=== PATIENT | male | born 1985 | race Caucasian/White ===

== ENCOUNTER 2017-03-17 18:02 | Emergency (ER) | payer SELFPAY ==
[~2017-03-17 18:02] MED LIST: COUMADIN10 MG PO; COUMADIN5 MG PO; LASIX DPS40 MG PO; LOPRESSOR DPS100 MG PO
--- NOTE | 2017-03-21 19:13 | ER ---
ADMIT: 03/17/2017 RM/LOC: ER [facility] MR#: [id number] [place], [place] [id number] JAMSHID PHAM [address] [place] [address] Emergency Room Report SEX: M AGE: 32 : 1985 DATE: 03/17/2017 HISTORY OF PRESENT ILLNESS: The patient is a 32-year-old male, past IV drug user. 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 The patient came to the ER with chief complaint of feeling tired and states that also he has some left hand tingling which comes and goes and intermittent and the patient states he had it for 30 minutes, which is getting increasing or decreasing in severity. The patient states today he worked in direct sunlight and heat for hours. PHYSICAL EXAMINATION: GENERAL: The patient was alert and oriented to person, place, and time. The patient was in no acute distress VITAL SIGNS: The patient had temperature of 100, respiratory rate of 16, heart rate was 98, blood pressure was 130/84. HEENT: Mucous membranes were dry. Other than that, the rest of the physical examination was normal. NECK: Soft. No meningismus CHEST: Clear lungs. HEART: I did not hear any gallops. EXTREMITIES: There was no swelling or erythema or tenderness in extremities. Normal neurovascular exam in all extremities. ABDOMEN: Soft, and the rest of the physical exam is noncontributory. EMERGENCY ROOM COURSE: The patient received IV fluids, 1 L normal saline and states he feels way better. Urine tox was negative. CK was 248. INR was on 0.2, which was subtherapeutic for the patient's condition. Glucose was 92, with creatinine of 0.9 and WBC of 10.9, and hemoglobin of 14.9. The patient states he felt better and is following up with the [facility] primary care physician. DIAGNOSIS: With diagnosis of right hand numbness which resolved and dehydration, the patient was discharged to home, was advised to drink more fluid and avoid direct sunlight as much as he can. The patient was discharged to home. Nolan Barbour MD/ giovanny JOB #: [id number] CC: Santiago Krause MD, Attending Physician . [facility], Family Physician
== END 2017-03-17 20:35 | disposition home or self-care (01) ==
LOC: ER 18:02
DX: E86.0 Dehydration (principal); R20.0 Anesthesia of skin; F17.210 Nicotine dependence, cigarettes, uncomplicated; Z79.01 Long term (current) use of anticoagulants; Z88.0 Allergy status to penicillin